=== PATIENT | female | born 1980 | race Caucasian/White ===

== ENCOUNTER 2018-08-25 11:34 | Emergency (ER) | payer OTHER ==
[~2018-08-25] VITALS: Ht 157.5 cm; Wt 68.0 kg
[2018-08-25] MEDS ORDERED: NORCO 5-325 TA1 EACH PO (16:46)
== END 2018-08-25 16:53 | disposition home or self-care (01) ==
LOC: ED 11:34
DX: D25.9 Leiomyoma of uterus, unspecified (principal); D26.1 Other benign neoplasm of corpus uteri; R19.7 Diarrhea, unspecified; Z88.5 Allergy status to narcotic agent
CPT/HCPCS: 74177; 76830; 76856; 80053; 81001; 83690; 84703; 85025; 87210; 87491; 87591; 99284-25; J2270; J2405; Q9967